=== PATIENT | male | born 1985 | race Caucasian/White ===

== ENCOUNTER 2020-07-25 07:45 | Outpatient (REF) | payer MEDICAID, SELFPAY | END 2020-07-25 07:46 | disposition home or self-care (01) | LOC: HO.LAB 07:45 | PROVIDERS: Visit Provider Internal Medicine | DX: Z20.822 Contact with and (suspected) exposure to COVID-19 (principal) | CPT/HCPCS: 36415; C9803; U0003 ==

== ENCOUNTER 2021-12-16 06:48 | Emergency (ER) | payer OTHER, SELFPAY ==
[2021-12-16 07:39] VITALS: BP 125/82; PULSE 87; RESP 16; TEMP 37.1; O2SAT 96; BMI 30.2
--- NOTE | 2021-12-16 08:31 | ED_ITS ---
HPI - General Adult General Chief complaint: Extremity Problem Stated complaint: R shoulder pain Time Seen by Provider: 12/16/21 08:31 Source: patient Mode of arrival: ambulatory Limitations: no limitations History of Present Illness HPI narrative: Patient is a 36 year old male presenting to the emergency department today with right shoulder pain. Patient states that he slept on his right shoulder wrong and over the last 3 days, he has had pain radiating down from his neck, into his shoulder. Patient denies any dizziness, lightheadedness, abdominal pain, nausea, vomiting, fever, chills, blurry vision, double vision, loss of vision, chest pain, difficulty breathing, shortness of breath, back pain, night sweats, pain with urination, increased urinary frequency, increased urinary urgency, blood in his urine or stool, syncope or a near syncopal episode, recent trauma or falls, bowel incontinence, bladder incontinence, bowel retention, bladder retention, or any other complaints at this time. Onset (ago): day(s) (3) Location: right and upper extremity Severity: mild Severity scale (1-10): 2 Quality: dull Pain Consistency: constant Relieving factors: none Exacerbating factors: none Associated symptoms: denies other symptoms Treatments prior to arrival: none Related Data Previous Rx's Medication Instructions Recorded cyclobenzaprine 10 mg tablet 10 mg PO TID PRN shoulder pain 7 12/16/21 days #21 tabs prednisone 20 mg tablet 20 mg PO DAILY 12 days #26 tabs 12/16/21 Allergies Allergy/AdvReac Type Severity Reaction Status Date / Time No Known Allergies Allergy Unverified 03/16/20 16:15 Review of Systems Constitutional: Constitutional: Reports no additional constitutional complaints, Denies chills, Denies fever(s) and Denies night sweats Eyes: Eyes: Reports no additional eye complaints, Denies blurry vision, Denies change in vision, Denies diplopia, Denies eye discharge, Denies loss of vision and Denies eye pain ENT: Denies dizziness Cardiovascular: Cardiovascular: Reports no additional cardiovascular complaints, Denies chest pain, Denies lightheadedness, Denies Loss of Consciousness and Denies dyspnea Respiratory: Respiratory: Reports no additional respiratory complaints and Denies dyspnea Gastrointestinal: Gastrointestinal: Reports no additional gastrointestinal complaints, Denies abdominal pain, Denies melena, Denies hematochezia, Denies change in bowel habits and Denies change in stool character Genitourinary: Genitourinary: Reports no additional male genitourinary complaints, Denies hematuria, Denies oliguria, Denies difficulty urinating, Denies dysuria, Denies urinary frequency, Denies urinary hesitancy, Denies u rinary incontinence and Denies urinary urgency Musculoskeletal: Musculoskeletal: Reports no additional musculoskeletal complaints, Denies numbness and Denies tingling Comments: right shoulder pain Neurologic: Denies dizziness, Denies loss of vision, Denies numbness and Denies tingling Psychiatric: Psychiatric: Reports no additional psychiatric complaints Endocrine: Endocrine: Reports no additional endocrine complaints Hematologic/Lymphatic: Hematologic/Lymphatic: Reports no additional hematologic/lymphatic complaints Allergic/Immunologic: Allergic/Immunologic: Reports no additional allergic/immunologic complaints [facility] Past Medical History Attestation statement: The following information was validated with the patient. Source: old records reviewed Social History Social History Advance Directives: No Advance Directives Information Provided: No Physical Exam ED Vital Signs: Vital Signs - 24 hr 12/16/21 07:39 Temperature 98.7 F Pulse Rate 87 Respiratory Rate 16 Blood Pressure 125/82 Pulse Oximetry 96 Oxygen Delivery Method Room Air BMI result Body Mass Index 30.2 Const General: cooperative, no acute distress, alert and awake Nutritional Appearance: well nourished Orientation/consciousness: patient oriented x3 Limitations: no limitations HENMT Head: Yes normal to inspection and Yes atraumatic Ears: hearing grossly normal bilaterally and external ears normal General nose exam: Normal external nose present, no nasal discharge noted and no epistaxis Face and sinus: Yes normal facial exam, No abrasion and No laceration Mouth: Normal oral and palatal mucosa present, no drooling and no muffled voice Eyes General: appearance normal, both eyes and all related structures Periorbital: periorbital findings normal Eyelids: Yes eyelids normal Conjunctivae: conjunctivae normal Pupils: Equal, round and reactive pupils present EOM: EOMs intact bilaterally Neck Neck: Yes normal visual inspection, Yes full ROM and Yes no lymphadenopathy Chest Chest palpation & inspection: normal inspection of the chest Resp Effort & Inspection: normal respiratory effort and able to speak in complete sentences Auscultation: clear to auscultation bilaterally Cardio Rate: regular rate Rhythm: regular rhythm GI Inspection: Yes normal to inspection Neuro General: patient oriented x3 and moves all extremities Cranial nerves: Yes Equal, round and reactive pupils present Cognition (Neuro): normal cognition Motor exam (neuro): 5/5 motor strength present throughout Sensory Exam: Normal double simultaneous stimulation for sensation Coordination: [id number] test normal Extrem General: Yes normal to inspection, Yes full ROM and Yes capillary refill normal Psych Appearance: grossly normal Mental Status: mental status grossly normal Affect: normal affect Attitude: cooperative Thought process: Normal thought process present Thought content: Normal thought content present Insight: Good insight present (Psych) Medical Decision Making MDM Narrative Medical decision making narrative: Patient is a 36 year old male presenting to the emergency department today with right shoulder pain. Patient's physical exam was unremarkable. I explained my physical exam findings to the patient. I answered all questions asked by the patient. Patient received PO Ativan and IM Solu-Medrol which he stated helped his symptoms significantly. I stressed the importance of the patient taking his medication as prescribed. I stressed the importance of the patient following up with his primary care provider and if pain persits, an orthopedic provider. I stressed the importance of the patient returning to the emergency department immediately if his symptoms were to worsen or if he were to develop any dizziness, shortness of breath, difficulty breathing, chest pain, blurry vision, loss of vision, nausea, vomiting, abdominal pain, fever, chills, back pain, or any other complaints. Patient verbalized agreement and understanding with this treatment plan and discharge. Differential Diagnosis Differential Diagnosis: shoulder pain, cervical radiculopathy Medical Records Medical records reviewed: Yes I reviewed the patient's medical records. Discharge Plan Discharge Clinical Impression: Cervical radiculopathy Patient Disposition: Home, Self-Care Instructions: Cervical Radiculopathy (ED) Additional Instructions: Follow up with your primary care provider. Return to the emergency department immediately if your symptoms worsen or if you develop any dizziness, shortness of breath, difficulty breathing, chest pain, blurry vision, loss of vision, nausea, vomiting, abdominal pain, fever, chills, back pain, or any other complaints. Prescriptions: New cyclobenzaprine 10 mg tablet 10 mg PO TID PRN (Reason: shoulder pain) 7 Days Qty: 21 0RF prednisone 20 mg tablet 20 mg PO DAILY 12 Days Qty: 26 0RF Rx Instructions: Take 3 tablets for 5 days THEN; Take 2 tablets for 4 days THEN; Take 1 tablet for 3 days Referrals: [facility] [Provider Group] (If pain persists, call to establish with and follow up with an orthopedic provider. ) Brooklynn North, TYRESE [Primary Care Provider] - Print Language: Greenlandic
[2021-12-16] MEDS: methylPREDNISolone Sod Succ 125 MG/2 ML VIAL 120 MG IM (09:22)
[2021-12-16] MEDS: LORazepam 1 MG TABLET 2 MG PO (09:22)
--- NOTE | 2021-12-16 09:23 | PC.NURSE ---
reports right shoulder pain x 2 days. non traumatic. woke with pain at first. has limited ROM right shoulder
== END 2021-12-16 09:32 | disposition home or self-care (01) ==
PROVIDERS: Emergency Provider Emergency Medicine Emergency Medical Services; PCP Nurse Practitioner
DX: M54.12 Radiculopathy, cervical region (principal); Z79.899 Other long term (current) drug therapy
CPT/HCPCS: 96372; 99282; 99284; J2930

== ENCOUNTER 2023-10-21 08:37 | Outpatient (AMB) | payer OTHER, SELFPAY ==
--- OUTSIDE RECORDS SUMMARY | 2023-10-21 08:08 | XMS_ITS | Continuity of Care Document ---
Author Organization [facility] ter Address [address] [place] [id number]- Care Team Providers Care Cinder Pit Crane Operator Name Role Phone Sherwin Guy MD Primary Care Physician [phone] Encounter [facility] [place] Date(s): 09/13/20 - 09/13/[address] [address]- Encounter Diagnosis Chest pain(Final) - 09/13/20 Discharge Disposition: A-D/C Home Attending Physician: Valencia Ho MD Admitting Physician: Valencia Ho MD Referring Physician: Not on Staff, Referring MD Allergies, Adverse Reactions, Alerts Substance Reaction Severity Status NKA Active Medications clonazePAM 1 mg oral tablet 1 tablet = 1 mg, By Mouth, Daily, PRN Anxiety, Maintenance, 03/30/20 9:22:00 EDT Start Date: 03/30/20 Status: Ordered Effexor XR 150 mg oral capsule, extended release 300 mg, 2, capsule, By Mouth, Daily in AM, Maintenance, 03/30/20 9:18:00 EDT Start Date: 03/30/20 Status: Ordered Lipitor 20 mg oral tablet 1 tablet = 20 mg, By Mouth, Daily in AM, Maintenance, 03/30/20 9:20:00 EDT Start Date: 03/30/20 Status: Ordered Melatonin Gummies (5mg) Melatonin Gummies (5mg), PRN Sleep, Maintenance, 03/30/20 9:24:00 EDT, Supply Start Date: 03/30/20 Status: Ordered omeprazole 20 mg oral delayed release tablet 1 tablet = 20 mg, By Mouth, Daily in AM, Maintenance, 03/30/20 9:21:00 EDT Start Date: 03/30/20 Status: Ordered traZODone 50 mg oral tablet See Instructions, PRN, 1/2 to 1 tablet at bedtime, Refills 0, Maintenance, Sleep, 03/30/20 9:23:00 EDT, Instructions Replace Required Details Start Date: 03/30/20 Status: Ordered Truvada 200 mg-300 mg oral tablet 1 tablet, By Mouth, Daily in AM, Maintenance, 03/30/20 9:20:00 EDT Start Date: 03/30/20 Status: Ordered Valtrex 1 gm oral tablet 1 tablet = 1 Gm, By Mouth, 2 times a day, Take for 3-5 days as needed, Maintenance, 03/30/20 10:02:00 EDT Start Date: 03/30/20 Status: Ordered Wellbutrin XL 300 mg/24 hours oral tablet, extended release 1 tablet = 300 mg, By Mouth, Daily in AM, Maintenance, 03/30/20 9:19:00 EDT Start Date: 03/30/20 Status: Ordered Results Radiology Reports * Exam Date Time Procedure Performing Provider Status 09/13/20 4:53 AM Chest 2 Views Frontal and Lat Mandi Bardales (Verified) Notes: (Chest 2 Views Frontal and Lat) Reason For Exam: Chest Pain;Other: RESULT: Chest 2 Views Frontal and Lat Chest 2 Views Frontal and Lat Hx of Present Illness: chest pain started 2 hours ago radiated to chest and back scapula; Reason: Other:; Chest Pain; Clinical Question(s): Other: COMPARISON: 07/01/2008 FINDINGS: LINES AND TUBES: None. LUNGS AND PLEURA: Clear lungs. Normal pulmonary vascularity. No pleural effusion. No pneumothorax. HEART, MEDIASTINUM AND LESA: Heart is normal in size. Normal upper mediastinal and hilar contour. BONES AND SOFT TISSUES: No acute abnormality. IMPRESSION: No acute abnormality. WSN: [id number] Ordering Physician: Greg Ayala Dictated By: Ines Tran MD Dictated Date/Time: 09/13/20 9:23 am Reviewed By: Ines Tran MD Signed By: Ines Tran MD Signed Date/Time: 09/13/20 9:23 am Transcribed By: ALEKSANDR Transcribed Date/Time: 09/13/20 9:16 am Vital Signs Most recent to oldest [Reference Range]: 1 2 3 Weight 95 kg (09/13/20 3:38 AM) Oxygen Saturation [94-100 %] 98 % (09/13/20 10:40 AM) 99 % (09/13/20 6:00 AM) 100 % (09/13/20 3:38 AM) Pulse Rate [55-90 bpm] 83 bpm (09/13/20 10:40 AM) 84 bpm (09/13/20 6:00 AM) 98 bpm *H* (09/13/20 3:38 AM) Blood Pressure [90-138/55-84 mm Hg] 106/62mm Hg (09/13/20 10:40 AM) 107/85mm Hg (09/13/20 6:00 AM) 125/86mm Hg (09/13/20 3:38 AM) Respiratory Rate [16-30 br/min] 16 br/min (09/13/20 10:40 AM) 18 br/min (09/13/20 6:00 AM) 16 br/min (09/13/20 3:38 AM) Temperature [96.8-100.4 DegF] 97.6 DegF (09/13/20 6:00 AM) 98.4 DegF (09/13/20 3:38 AM) Mode of Delivery (Oxygen) Room air (09/13/20 10:40 AM) Room air (09/13/20 6:00 AM) Room air (09/13/20 3:38 AM) Blood pressure sites Arm, right (09/13/20 6:00 AM) Arm, right (09/13/20 3:38 AM) Temperature Route Oral (09/13/20 6:00 AM) Oral (09/13/20 3:38 AM) Dry Weight 95 kg (09/13/20 3:38 AM) Weight Obtained Via Patient/family state d (09/13/20 3:38 AM) Dry Weight Obtained Via Patient/family s tated (09/13/20 3:38 AM)
--- OUTSIDE RECORDS SUMMARY | 2023-10-21 08:08 | XMS_ITS | Continuity of Care Document ---
Author Organization [facility] Address [address] [place] [address]- Care Team Providers Care Spray Booth Operator Name Role Phone Not on Staff, PCP Primary Care Physician Unavail able Encounter [facility] Date(s): 02/01/22 - 04/05/22 [facility] [address]- Attending Physician: Not on Staff, Attending MD Allergies, Adverse Reactions, Alerts No Known Allergies Medications clonazePAM 1 mg oral tablet 1 [...] 9:21:00 EDT Start Date: 03/30/20 Status: Ordered Remeron 15 mg oral tablet 1 tablet = 15 mg, By Mouth, Daily at bedtime, 0 Refills, Maintenance, 01/08/21 14:23:00 EDT, Partial fill upon patient request if the prescription is for a schedule II opioid drug. Start Date: 01/08/21 Status: Ordered Truvada 200 mg-300 mg oral tablet 1 tablet, By Mouth, Daily in AM, Maintenance, 03/30/20 9:20:00 EDT Start Date: 03/30/20 Status: Ordered Valtrex 1 gm oral tablet 1 tablet = 1 Gm, By Mouth, 2 times a day, Take for 3-5 days as needed, Maintenance, 03/30/20 10:02:00 EDT Start Date: 03/30/20 Status: Ordered Vitamin D 43415 iu oral capsule 50,000 International_Units, By Mouth, Every week, Refills 0, Maintenance, 01/25/21 9:22:00 EDT, Partial fill upon patient request if the prescription is for a schedule II opioid drug. Start Date: 01/25/21 Status: Ordered Wellbutrin XL 300 mg/24 hours oral tablet, extended release 1 tablet = 300 mg, By Mouth, Daily in AM, Maintenance, 03/30/20 9:19:00 EDT Start Date: 03/30/20 Status: Ordered Social History Social History Type Response Smoking Status Never (less than 100 in lifetime) entered on: 01/25/21 Sex Patient Care team information Personnel Name: Not on Staff, PCP
--- OUTSIDE RECORDS SUMMARY | 2023-10-21 08:08 | XMS_ITS | Continuity of Care Document ---
Author Organization [facility] Address [address] [place] [id number]- Care Team Providers Care Erp Specialist Name Role Phone Not on Staff, PCP Primary Care Physician Unavail able Encounter [facility] [place] Date(s): 01/16/22 - 02/15/[address] [address]- Attending Physician: Jennie Ceja Admitting Physician: Jennie Ceja Referring Physician: AdmtrJennie Allergies, Adverse Reactions, Alerts No Known Allergies [...] Start Date: 03/30/20 Status: Ordered Vitamin D 44644 iu oral capsule 50,000 International_Units, By Mouth, [...]
--- OUTSIDE RECORDS SUMMARY | 2023-10-21 08:08 | XMS_ITS | Continuity of Care Document ---
Author Organization [facility] Address [address] [place] [address]- Care Team Providers Care Aircraft Engine Installer Name Role Phone Not on Staff, PCP Primary Care Physician Unavail able Encounter [facility] [place] Date(s): 01/14/22 - 03/01/[address] [address] Discharge Disposition: A-D/C Home Attending Physician: Not on Staff, Attending MD Admitting Physician: Not on Staff, Admitting MD Referring Physician: Not on Staff, Referring MD Allergies, Adverse Reactions, Alerts No Known [...] Start Date: 03/30/20 Status: Ordered Vitamin D 05762 iu oral capsule 50,000 International_Units, By Mouth, [...] 100 in lifetime) entered on: 01/25/21 Sex Care Team Personnel Name: Not on Staff, PCP
--- OUTSIDE RECORDS SUMMARY | 2023-10-21 08:08 | XMS_ITS | Continuity of Care Document ---
Author Organization [facility] Address [address] [place] [address]- Care Team Providers Care Epidemiology Intern Name Role Phone Not on Staff, PCP Primary Care Physician Unavail able [place] [facility] [place] - 04/05/22 [facility]/[place] [address]- Attending Physician: Jennie Ceja Admitting Physician: Jennie Ceja Referring Physician: Jennie Ceja Allergies, Adverse Reactions, Alerts No Known Allergies [...] Start Date: 03/30/20 Status: Ordered Vitamin D 44350 iu oral capsule 50,000 International_Units, By Mouth, [...]
--- OUTSIDE RECORDS SUMMARY | 2023-10-21 08:08 | XMS_ITS | Continuity of Care Document ---
Author Organization [facility] Address [address] [place] [address]- Care Team Providers Care Maternity Floor Supervisor Name Role Phone Not on Staff, PCP Primary Care Physician Unavail able Encounter [facility] [place] [facility] [id number] Date(s): 02/13/22 - 03/15/[address] [address]- Attending Physician: Jennie Ceja Admitting Physician: Jennie [...] Start Date: 03/30/20 Status: Ordered Vitamin D 57489 iu oral capsule 50,000 International_Units, By Mouth, [...]
--- NOTE | 2023-10-21 08:09 | AM.OFFWIN_ITS ---
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 patient is also experiencing burning while urination since yeserday Patient Tobacco Use Status: Never used Tobacco Allergies No Known Allergies Allergy (Verified 10/21/23 08:33) Medication List - Last Reconciled 10/21/23 by OLGA Smith No Known Home Meds Do you need a note to return to daycare/school/sports/work: Yes HPI HPI Comments History of Present Illness Details Patient is a 38-year-old male in today for sick visit. Patient states he developed symptoms of sore throat, right ear pain and cough for 4 days. Patient has used [id number] medication with mild relief. 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 Patient denies shortness of breath, chest pain, nausea, vomiting, diarrhea. Patient states over the past 2 days he has developed symptoms of burning with urination. No history of the same. Admits sexual contacts. [facility] Social History Patient Tobacco Use Status: Never used Tobacco Review of Systems Const All systems reviewed & are unremarkable except as noted in HPI and below Physical Exam Vital Signs: Last Vital Signs Temp 98.5 F 10/21/23 08:19 Pulse 67 10/21/23 08:19 BP 108/66 10/21/23 08:19 Pulse Ox 98 10/21/23 08:19 Oxygen Delivery Method Room Air 10/21/23 08:19 BMI result Body Mass Index 28.1 Const Other: Appearance: Alert.? Oriented X3.? No acute distress.? Head: Normocephalic, atraumatic, Eyes: Pupils equal, round and reactive to light.? ENT: Pharynx erythema. No exudate. Right TM effusion with erythema. Left TM intact and pearly guerrero. Neck: Normal inspection.? Neck supple.?Full ROM. CVS: Normal heart rate and rhythm.? Pulses normal.? Respiratory: No respiratory distress.? Breath sounds normal.? Neuro: Oriented X 3.? No motor deficit.? No sensory deficit. CN 2-12 intact Results AMB Urinalysis, Automated UA Leukoctes 0 Victoria/uL Last Edit by Michele Ruelas CMA on 10/21/23 08:36 UA Nitrite Negative Last Edit by Michele Ruelas CMA on 10/21/23 08:36 UA Urobilinogen 0.2 mg/dL Last Edit by Michele Ruelas CMA on 10/21/23 08 :36 UA Protein 0 mg/dL Last Edit by Michele Ruelas, ROCIO on 10/21/23 08:36 UA pH 7.0 Last Edit by Michele Ruelas CMA on 10/21/23 08:36 UA Blood 0 Tung/uL Last Edit by Michele Ruelas CMA on 10/21/23 08:36 UA Specific Lillian 1.020 Last Edit by Michele Ruelas CMA on 10/21/23 08:36 UA Ketone Negative Last Edit by Michele Ruelas CMA on 10/21/23 08:36 UA Bilirubin 1 mg/dL Last Edit by Michele Ruelas CMA on 10/21/23 08:36 UA Glucose 0 mg/dL Last Edit by Michele Ruelas CMA on 10/21/23 08:36 AMB Rapid Strep AMB Rapid Strep Negative Last Edit by Michele Ruelas CMA on 10/21/23 08 :36 Assessment & Plan Assessment & Plan (1) Burning with urination: Comment: Will order UA, CTs and NG PCR. Code(s): R30.0 - Dysuria Plan: Will call patient with results. (2) Otitis media of right ear: Comment: Patient has otitis media right ear. Will give doxycycline Code(s): H66.91 - Otitis media, unspecified, right ear Qualifiers: Otitis media type: unspecified Qualified Code(s): H66.91 - Otitis media, unspecified, right ear Plan: Take your medications as prescribed. If you were prescribed antibiotics today, it is important that you take your medication to their entirety, do not skip any doses, do not finish them early. Follow-up with your primary care provider this week. Return to the emergency department with new or worsening symptoms. Such as fevers, chills, chest pain, shortness of breath, nausea, vomiting, dizziness, headache, vision changes, lethargy In case of emergency call 911 Plan Patient instructed to return to walk-in clinic if not better in 3 days Orders: Orders SARS-CoV2/FLU/RSV Today J06.9 - Acute upper respiratory infection, unspecified CT NG by PCR Today H66.91 - Otitis media, unspecified, right ear, R30.0 - Dysuria AMB Urinalysis Automated Today Z13.9 - Encounter for screening, unspecified AMB Rapid Strep Screen Today Z13.9 - Encounter for screening, unspecified Medications: New doxycycline hyclate 100 mg PO BID 14 tabs 0RF benzonatate 100 mg PO BID PRN 20 caps 0RF cough Discontinued prednisone Take 3 tablets for 5 days THEN; Take 2 tablets for 4 days THEN; Take 1 tablet for 3 days Discontinued Reason: Patient Completed Course 20 mg PO DAILY 12 days 26 tabs 0RF cyclobenzaprine Discontinued Reason: Patient Completed Course 10 mg PO TID 7 days PRN 21 tabs 0RF shoulder pain Coding Level of Care Code Est Pt Level 3 (07058) Diagnoses Burning with urination R30.0 Right otitis media, unspecified otitis media type H66.91 Otitis media type: unspecified Time Spent (min) 24
[2023-10-21 08:19] VITALS: BP 108/66; PULSE 67; TEMP 36.9; O2SAT 98; BMI 28.1
== END 2023-10-21 09:11 | disposition home or self-care (01) ==
PROVIDERS: PCP Nurse Practitioner; Visit Provider Nurse Practitioner Primary Care
DX: R30.9 Painful micturition, unspecified (principal); J02.9 Acute pharyngitis, unspecified
CPT/HCPCS: 81003; 87880; 99213

== ENCOUNTER 2023-10-21 08:56 | Outpatient (REF) | payer OTHER, SELFPAY ==
[2023-10-21 11:08] LABS: Influenza A PCR NEGATIVE (Negative); Influenza B PCR NEGATIVE (Negative); Resp Syncy Virus RNA Qual PCR NEGATIVE (Negative); SARS COV2 PCR INHOUSE NEGATIVE (Negative)
[2023-10-21 12:04] LABS: CT PCR NOT DETECTED (Not Detect.); NG PCR NOT DETECTED (Not Detect.)
== END 2023-10-21 08:57 | disposition home or self-care (01) ==
LOC: HO.HMGCLDS 08:56
PROVIDERS: PCP Nurse Practitioner; Visit Provider Nurse Practitioner Primary Care
DX: J06.9 Acute upper respiratory infection, unspecified (principal); Z20.2 Contact with and (suspected) exposure to infections with a predominantly sexual mode of transmission
CPT/HCPCS: 0241U; 0353U